=== PATIENT | male | born 1965 | race Hispanic/Latino ===

== ENCOUNTER 2020-02-04 21:25 | Emergency (ER) | payer SELFPAY ==
--- NOTE | 2020-02-04 23:16 | Emergency Department Report ---
- General Chief complaint: Skin/Abscess/Foreign Body Stated complaint: GROIN PAIN Time Seen by Provider: 02/04/20 23:12 Source: patient Mode of arrival: Ambulatory Limitations: No Limitations - History of Present Illness Initial comments: This pleasant 54-year-old male presents the emergency department the chief complaint of a painful bump on his perineum. He reports a similar presentation previously where he was given oral antibiotics at home and this resolved spontaneously without any intervention. He reports this started over a week ago when he felt a bump there he squeezed it and some pus came out he. He then reports this happened again a few days later he squeezed and some more pus came out. He then reports he squeezed it again and nothing came out and has been g rowing since. He reports this has been aggravating him over the past 3 days and has pain whenever he sits. He has a past medical history of diabetes, heart attack, hypertension, smoking. He denies any pain in his scrotum, difficulty urinating, fever, chills, night sweats, headache, dizziness, blurry vision, nausea, vomiting, diarrhea, chest pain, shortness of breath or any other associated symptoms. His pain is a 6 out of 10 aggravated by sitting mildly alleviated when lying down. - Related Data Previous Rx's Medication Instructions Recorded Last Taken Type Clindamycin [Clindamycin CAP] 300 mg PO Q8H 10 Days #30 cap 02/05/20 Unknown Rx Allergies Allergy/AdvReac Type Severity Reaction Status Date / Time No Known Allergies Allergy Unverified 07/05/13 15:27 Abscess Boil [facility] - [facility] Chief Complaint: Skin/Abscess/Foreign Body Stated Complaint: GROIN PAIN Time Seen by Provider: 02/04/20 23:12 Home Medications: Previous Rx's Medication Instructions Recorded Last Taken Type Clindamycin [Clindamycin CAP] 300 mg PO Q8H 10 Days #30 cap 02/05/20 Unknown Rx Allergies/Adverse Reactions: Allergies Allergy/AdvReac Type Severity Reaction Status Date / Time No Known Allergies Allergy Unverified 07/05/13 15:27 ED Review of Systems ROS: Stated complaint: GROIN PAIN Other details as noted in HPI Comment: All other systems reviewed and negative Constitutional: denies: chills, fever Eyes: denies: eye pain, eye discharge, vision change ENT: denies: ear pain, throat pain Respiratory: denies: cough, shortness of breath, wheezing Cardiovascular: denies: chest pain, palpitations Endocrine: no symptoms reported Gastrointestinal: denies: abdominal pain, nausea, diarrhea Genitourinary: denies: urgency, dysuria Musculoskeletal: denies: back pain, joint swelling, arthralgia Skin: as per HPI, other (Abscess). denies: rash, lesions Neurological: denies: headache, weakness, paresthesias Psychiatric: denies: anxiety, depression Hematological/Lymphatic: denies: easy bleeding, easy bruising ED Past Medical Hx - Past Medical History Previous Medical History?: Yes Hx Hypertension: Yes Hx Heart Attack/AMI: Yes Hx Diabetes: Yes Additional medical history: coronary artery disease. cholesterol - Surgical History Past Surgical History?: Yes Additional Surgical History: Left hand surgery with MRSA - Social History Smoking Status: Current Every Day Smoker - Medications Home Medications: Home Medications Medication Instructions Recorded Confirmed Last Taken Type Clindamycin [Clindamycin CAP] 300 mg PO Q8H 10 Days #30 cap 02/05/20 Unknown Rx ED Physical Exam - General Limitations: No Limitations General appearance: alert, in no apparent distress - Head Head exam: Present: atraumatic, normocephalic - Eye Eye exam: Present: normal appearance, PERRL, EOMI Pupils: Present: normal accommodation - ENT ENT exam: Present: normal exam, normal orophraynx, mucous membranes moist, TM's normal bilaterally, normal external ear exam - Neck Neck exam: Present: normal inspection, full ROM. Absent: tenderness, meningismus - Respiratory Respiratory exam: Present: normal lung sounds bilaterally. Absent: respiratory distress, wheezes, rales, rhonchi, stridor, chest wall tenderness - Cardiovascular Cardiovascular Exam: Present: regular rate, normal rhythm, normal heart sounds. Absent: systolic murmur, diastolic murmur, rubs, gallop - GI/Abdominal GI/Abdominal exam: Present: soft, normal bowel sounds. Absent: distended, tenderness, guarding, rebound, rigid - Rectal Rectal exam: Present: deferred - exam: Present: normal inspection, other (There is a 1 cm fluctuant area at the perineum. There is no crepitus. There is no induration or erythema to the scrotum. This does not appear to communicate with the scrotum and there is no pain to the scrotum, testicles or inguinal area.). Absent: testicular tenderness, urethral discharge - Extremities Exam Extremities exam: Present: normal inspection - Back Exam Back exam: Present: normal inspection - Neurological Exam Neurological exam: Present: alert, oriented X3 - Psychiatric Psychiatric exam: Present: normal affect, normal mood - Skin Skin exam: Present: warm, dry, intact, normal color. Absent: rash ED Course Vital Signs 02/04/20 22:04 Temperature 98.0 F Pulse Rate 68 Respiratory 18 Rate Blood Pressure 176/76 O2 Sat by Pulse 95 Oximetry - I & D Perineum Type of Procedure: Complex Site: base of scrotum Blade Size: 11 I & D Procedure: betadine prep, sterile drapes applied, sterile dressing applied, gauze wick placed Progress: I first cleaned the area with Betadine and use sterile drapes. The area was anesthetized with 1% lidocaine without epinephrine making a wheal under the skin. I then used a 11 blade to make 1/2 cm incision and immediately a copious amount of purulent drainage was coming out of the incision. I then probed and deloculated with Kimberly clamps and thoroughly irrigated the wound. Patient tolerated this well. I then used quarter inch iodoform packing approximately 4 cm was placed in the wound with a large tail. Overall the appearance after drainage had significantly improved and the patient's pain had significantly im proved ED Medical Decision Making - Medical Decision Making Patient is nontoxic in no acute distress. Vitals are stable. The abscess was at the base of the scrotum but does not appear to communicate with the scrotum. I obtained verbal consent from the patient and educated him about the possibility of a worse infection such as June's gangrene however due to his well appearance the fact this does not appear to communicate with the scrotum my suspicion for this is low at this time. After the verbal consent we proceeded with incision and drainage at the bedside. Patient tolerated this very well. A very large copious amount of purulent drainage was expressed from the wound. Then packed the wound patient tolerated this well felt much better. Recommended warm compresses 5 minutes every hour, clindamycin and follow-up with urology or primary care. Patient understood that since he is diabetic that if his symptoms do not significantly improve or if he develop a fever or swelling or pain in the scrotum he need to return the emergency department immediately. He verbalized understanding of the diagnosis, treatment plan and follow-up instructions and all of his questions were answered. - Differential Diagnosis Abscess, June's gangrene, cellulitis Critical care attestation.: If time is entered above; I have spent that time in minutes in the direct care of this critically ill patient, excluding procedure time. ED Disposition Clinical Impression: Perineal abscess Disposition: TO HOME OR SELFCARE Is pt being admited?: No Condition: Stable Instructions: Abscess (ED) Additional Instructions: Is very important that you make sure you are doing warm compresses or warm sits baths 5 minutes every hour. Make sure you take the antibiotics until all 30 pills have been taken over the next 10 days. If you develop any changing or worsening symptoms such as swelling in your scrotum, worsening pain fever or any other changing worsening symptoms please proceed to the emergency department immediately. Prescriptions: Clindamycin [Clindamycin CAP] 300 mg PO Q8H 10 Days #30 cap Referrals: PRIMARY MD REHAN [Primary Care Provider] - 3-5 Days TESS PERSAUD MD [Staff Physician] - 3-5 Days Time of Disposition: 00:26
[2020-02-04 23:34] VITALS: BP 176/76
== END 2020-02-05 01:30 | disposition home or self-care (01) ==
LOC: ED 21:25
DX: L02.215 Cutaneous abscess of perineum (principal)
CPT/HCPCS: 99281

== ENCOUNTER 2022-04-09 22:30 | Emergency (ER) | payer SELFPAY ==
[2022-04-10] MEDS ORDERED: ONDANSETRON 4 MG ODT TAB PO ONE (05:36)
[2022-04-10 06:12] LABS: Basophils # (Auto) 0.1 K/mm3 (0.0-0.1); Basophils % (Auto) 0.5 % (0.0-1.8); Eosinophils # (Auto) 0.2 K/mm3 (0.0-0.4); Eosinophils % (Auto) 1.9 % (0.0-4.3); Hematocrit 42.5 % (35.5-45.6); Hemoglobin 14.6 gm/dl (11.8-15.2); Lymphocytes # (Auto) 1.5 K/mm3 (1.2-5.4); Lymphocytes % (Auto) 15.4 % (13.4-35.0); Mean Corpuscular HGB Conc 34 % (32-34); Mean Corpuscular Volume 90 fl (84-94); Monocytes # (Auto) 0.5 K/mm3 (0.0-0.8); Monocytes % (Auto) 4.6 % (0.0-7.3); Platelet Count 182 K/mm3 (140-440); Red Blood Count 4.73 M/mm3 (3.65-5.03); Red Cell Distribution Width 14.4 % (13.2-15.2)
[2022-04-10 06:25] LABS: Alanine Aminotransferase 11 units/L (7-56); Albumin 4.3 g/dL (3.9-5); BUN/Creatinine Ratio 13; Blood Urea Nitrogen 10 mg/dL (9-20); Calcium 9.4 mg/dL (8.4-10.2); Hemolysis Index 6
--- NOTE | 2022-04-10 06:25 | Emergency Department Report ---
ED Abdominal Pain HPI - General Chief Complaint: Abdominal Pain Stated Complaint: SICK Time Seen by Provider: 04/10/22 06:08 Source: patient Mode of arrival: Ambulatory Limitations: No Limitations - History of Present Illness Initial Comments: Patient is a 56-year-old male presenting to ED with complaint of abdominal discomfort, nausea vomiting and diarrhea for the past 4 months. 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 He also reports t hat he was told that he had a "narrowing of blood vessels in his abdomen ". States he will have periods where he is severely weak and cannot get out of bed. Currently states he feels well aside from mild nausea however his urged him come in today for evaluation. - Related Data Previous Rx's Medication Instructions Recorded Last Taken Type Clindamycin [Clindamycin CAP] 300 mg PO Q8H 10 Days #30 cap 02/05/20 Unknown Rx Allergies Allergy/AdvReac Type Severity Reaction Status Date / Time No Known Allergies Allergy Unverified 07/05/13 15:27 ED Review of Systems ROS: Stated complaint: SICK Other details as noted in HPI Comment: All other systems reviewed and negative Constitutional: malaise Respiratory: denies: cough, shortness of breath, wheezing Cardiovascular: denies: chest pain, palpitations Gastrointestinal: abdominal pain, nausea, vomiting, diarrhea Musculoskeletal: denies: back pain, joint swelling, arthralgia Skin: denies: rash, lesions Neurological: denies: headache, weakness, paresthesias Psychiatric: denies: anxiety, depression ED Past Medical Hx - Past Medical History Hx Hypertension: Yes Hx Heart Attack/AMI: Yes Hx Diabetes: Yes Additional medical history: coronary artery disease. cholesterol - Surgical History Additional Surgical History: Left hand surgery with MRSA - Social History Smoking Status: Current Every Day Smoker - Medications Home Medications: Home Medications Medication Instructions Recorded Confirmed Last Taken Type Clindamycin [Clindamycin CAP] 300 mg PO Q8H 10 Days #30 cap 02/05/20 Unknown Rx ED Physical Exam - General Limitations: No Limitations General appearance: alert, in no apparent distress - Head Head exam: Present: atraumatic, normocephalic - Respiratory Respiratory exam: Present: normal lung sounds bilaterally. Absent: respiratory distress - Cardiovascular Cardiovascular Exam: Present: regular rate, normal rhythm, normal heart sounds - GI/Abdominal GI/Abdominal exam: Present: soft. Absent: distended, tenderness - Rectal Rectal exam: Present: deferred - Neurological Exam Neurological exam: Present: alert, oriented X3 - Psychiatric Psychiatric exam: Present: normal affect, normal mood - Skin Skin exam: Present: warm, dry, intact, normal color ED Course Vital Signs 04/09/22 04/10/22 22:34 06:12 Temperature 98.0 F Pulse Rate 61 Respiratory 18 Rate Blood Pressure 133/81 O2 Sat by Pulse 99 97 Oximetry ED Medical Decision Making - Lab Data Result diagrams: 04/10/22 05:38 04/10/22 05:38 - Medical Decision Making Patient given sublingual Zofran for nausea. Labs obtained. CBC and CMP grossly unremarkable. Lipase 242. Likely mild pancreatitis. LFTs are normal. Patient is currently asymptomatic. He is stable for discharge home with return precautions Critical care attestation.: If time is entered above; I have spent that time in minutes in the direct care of this critically ill patient, excluding procedure time. ED Disposition Clinical Impression: Pancreatitis Disposition: 01 HOME / SELF CARE / HOMELESS Is pt being admited?: No Condition: Stable Instructions: Acute Pancreatitis, [id number] Referrals: LORETO JAMES MD [Primary Care Provider] - 7 Days Time of Disposition: 08:22
[2022-04-10 06:50] LABS: Bilirubin,Urine NEG (Negative); Blood,Urine NEG (Negative); Color,Urine Yellow (Yellow); Protein,Urine <15 mg/dL mg/dL (Negative)
[2022-04-10 07:11] LABS: Bacteria,Urine 1+ /HPF (Negative); Hyaline Casts,Urine 2 /LPF; Mucus,Urine 1+ /HPF
[2022-04-10 09:37] VITALS: BP 140/85
== END 2022-04-10 09:37 | disposition home or self-care (01) ==
LOC: ED 22:30
DX: K85.90 Acute pancreatitis without necrosis or infection, unspecified (principal); I11.9 Hypertensive heart disease without heart failure; E11.9 Type 2 diabetes mellitus without complications; E78.00 Pure hypercholesterolemia, unspecified; Z98.890 Other specified postprocedural states; F17.290 Nicotine dependence, other tobacco product, uncomplicated
CPT/HCPCS: 36415; 80053; 81001; 83690; 83735; 85025; 99283; J3490; Q0162